=== PATIENT | female | born 1990 | race American Indian/Alaskan Native ===

== ENCOUNTER 2019-05-27 19:24 | Emergency (ER) | payer MEDICAID ==
--- NOTE | 2019-05-27 19:41 | Event Note ---
ED Screening Note Date of service: 05/27/19 Time: 19:39 ED Screening Note: 29 y o female presents with SI with no plans admits HI towards her 23 year old cousin LMP: last week This initial assessment/diagnostic orders/clinical plan/treatment(s) is/are subject to change based on patients health status, clinical progression and re- assessment by fellow clinical providers in the ED. Further treatment and workup at subsequent clinical providers discretion. Patient/guardian urged not to elope from the ED as their condition may be serious if not clinically assessed and managed. Initial orders include: labs, ua main side eval
[2019-05-27 20:18] LABS: Bacteria,Urine 1+ /HPF (Negative); Bilirubin,Urine NEG (Negative); Blood,Urine NEG (Negative); Color,Urine Yellow (Yellow); Mucus,Urine FEW /HPF; Protein,Urine <15 mg/dL mg/dL (Negative); Urobilinogen,Urine < 2.0 mg/dL (<2.0)
[2019-05-27 20:32] LABS: Amphetamine Screen,Urine PRESUMPTIVE NEGATIVE; Benzodiazepines Screen,Urine PRESUMPTIVE NEGATIVE; Cannabinoid Screen,Urine PRESUMPTIVE NEGATIVE; Cocaine Screen,Urine PRESUMPTIVE NEGATIVE; Methadone Screen,Urine PRESUMPTIVE NEGATIVE; Opiate Screen,Urine PRESUMPTIVE NEGATIVE
[2019-05-27 20:48] LABS: Basophils % (Auto) 0.2 % (0.0-1.8); Eosinophils % (Auto) 0.5 % (0.0-4.3); Hematocrit 36.8 % (30.3-42.9); Hemoglobin 12.5 gm/dl (10.1-14.3); Lymphocytes # (Auto) 1.7 K/mm3 (1.2-5.4); Mean Corpuscular HGB Conc 34 % (30-34); Mean Corpuscular Volume 88 fl (79-97); Monocytes # (Auto) 0.4 K/mm3 (0.0-0.8); Monocytes % (Auto) 8.3 % (0.0-7.3); Platelet Count 280 K/mm3 (140-440); Red Cell Distribution Width 14.2 % (13.2-15.2)
[2019-05-27 20:57] LABS: BUN/Creatinine Ratio 19; Blood Urea Nitrogen 13 mg/dL (7-17); Calcium 9.4 mg/dL (8.4-10.2); Hemolysis Index 4
--- NOTE | 2019-05-27 21:23 | Emergency Department Report ---
HPI <SHARMIN GARZON - Last Filed: 05/28/19 10:06> - HPI HPI: 29-year-old female presents to the emergency department, walking herself in to be seen, with a complaint of suicidal ideations. This has been going on since 2012. The patient also appears to have some homicidal ideations. She says that she wants to kill her 11-year-old cousin. She says that the cousin acts like she is 23 years old and has "a smart mouth." The patient denies any diagnosed psychiatric conditions. She says she feels depressed because "my family does not want me" and "they don't want to take me and my kids in." Her kids are currently living with her cousin. She denies any auditory or visual hallucinations. She does not have any particular plan as to how she would harm herself. <TROY CHAPPELL - Last Filed: 05/30/19 17:57> - General Chief Complaint: Psych Time Seen by Provider: 05/27/19 20:47 ED Past Medical Hx <SHARMIN GARZON - Last Filed: 05/28/19 10:06> - Past Medical History Hx Asthma: Yes - Surgical History Past Surgical History?: No - Social History Smoking Status: Never Smoker Substance Use Type: None <TROY CHAPPELL - Last Filed: 05/30/19 17:57> - Medications Home Medications: Home Medications Medication Instructions Recorded Confirmed Last Taken Type No Known Home Medications [No 05/27/19 05/27/19 Unknown History Reported Home Medications] ED Review of Systems ROS: Stated complaint: SUICIDAL Other details as noted in HPI <SHARMIN GARZON - Last Filed: 05/28/19 10:06> ROS: Stated complaint: SUICIDAL Other details as noted in HPI Comment: All other systems reviewed and negative Constitutional: denies: chills, fever Respiratory: denies: shortness of breath Cardiovascular: denies: chest pain Gastrointestinal: denies: abdominal pain Neurological: denies: headache, weakness Psychiatric: depression, homicidal thoughts, suicidal thoughts. denies: auditory hallucinations, visual hallucinations <TROY CHAPPELL - Last Filed: 05/30/19 17:57> Physical Exam - Physical Exam Vital Signs: Vital Signs 12/22/19 12/23/19 12/23/19 19:36 01:25 07:42 Temperature 99 F 97.9 F 98.3 F Pulse Rate 76 70 69 Respiratory 18 20 Rate Blood Pressure 121/85 Blood Pressure 120/80 117/84 [Left] O2 Sat by Pulse 100 98 100 Oximetry <SHARMIN GARZON - Last Filed: 05/28/19 10:06> - Physical Exam Vital Signs: Vital Signs 05/27/19 19:36 Temperature 99 F Pulse Rate 76 Respiratory 18 Rate Blood Pressure 121/85 O2 Sat by Pulse 100 Oximetry Physical Exam: GENERAL: The patient is well-developed well-nourished. HEENT: Normocephalic. Atraumatic. Patient has moist mucous membranes. EYES: Extraocular motions are intact. NECK: Supple. Trachea is midline. CHEST/LUNGS: Clear to auscultation. There is no respiratory distress noted. HEART/CARDIOVASCULAR: Regular. There is no tachycardia. ABDOMEN: There is no abdominal distention. SKIN: Skin is warm and dry. NEURO: The patient is awake, alert, and oriented. The patient is cooperative. The patient has no focal neurologic deficits. The patient has normal speech. MUSCULOSKELETAL: There is no tenderness or deformity. There is no evidence of acute injury. <TROY CHAPPELL S - Last Filed: 05/30/19 17:57> ED Course Vital Signs 05/27/19 05/28/19 05/28/19 19:36 01:25 07:42 Temperature 99 F 97.9 F 98.3 F Pulse Rate 76 70 69 Respiratory 18 20 Rate Blood Pressure 121/85 Blood Pressure 120/80 117/84 [Left] O2 Sat by Pulse 100 98 100 Oximetry <SHARMIN GAZRON - Last Filed: 05/28/19 10:06> Vital Signs 05/27/19 19:36 Temperature 99 F Pulse Rate 76 Respiratory 18 Rate Blood Pressure 121/85 O2 Sat by Pulse 100 Oximetry <TROY CHAPPELL - Last Filed: 05/30/19 17:57> ED Medical Decision Making - Lab Data Result diagrams: 05/27/19 20:13 05/27/19 20:13 - Medical Decision Making I spoke with outreach professional. Ms. Vazquez will be discharged. 1013 rescinded. <SHARMIN GARZON - Last Filed: 05/28/19 10:06> - Lab Data Result diagrams: 05/27/19 20:13 05/27/19 20:13 - Medical Decision Making this patient presents with suicidal and homicidal ideations. For this reason she has been made a 1013. Labs are unremarkable. Vital signs stable throughout her ED course. She appears medically cleared for psychiatric placement and will be seen by the psychiatric assessment team in the morning. - Differential Diagnosis depression, bipolar disorder, substance abuse <TROY CHAPPELL - Last Filed: 05/30/19 17:57> Critical care attestation.: If time is entered above; I have spent that time in minutes in the direct care of this critically ill patient, excluding procedure time. <SHARMIN GARZON - Last Filed: 05/28/19 10:06> Critical Care Time: No Critical care attestation.: If time is entered above; I have spent that time in minutes in the direct care of this critically ill patient, excluding procedure time. <TROY CHAPPELL - Last Filed: 05/30/19 17:57> ED Disposition Is pt being admited?: No Does the pt Need Aspirin: No <SHARMIN GARZON - Last Filed: 05/28/19 10:06> Is pt being admited?: No Time of Disposition: 03:26 <TROY CHAPPELL - Last Filed: 05/30/19 17:57> Clinical Impression: Suicidal ideations, Homicidal ideations, Acute depression Disposition: DC-01 TO HOME OR SELFCARE Condition: Stable Additional Instructions: Please follow up with therapist provided. Forms: Work/School Release Form(ED)
[2019-05-28 07:42] VITALS: BP 117/84
== END 2019-05-28 11:00 | disposition home or self-care (01) ==
LOC: ED 19:24
DX: R45.851 Suicidal ideations (principal); R45.850 Homicidal ideations; F32.9 Major depressive disorder, single episode, unspecified; J45.909 Unspecified asthma, uncomplicated
CPT/HCPCS: 36415; 80048; 80307; 80320; 81001; 85025; G0480